=== PATIENT | female | born 1940 | race African-American/Black ===

== ENCOUNTER 2024-12-26 10:34 | Inpatient (IN) | payer OTHER, MEDICAID ==
[~2024-12-26] VITALS: Ht 172.7 cm; Wt 59.4 kg
[2024-12-26 10:40] VITALS: O2SAT 100
[2024-12-26 12:11] LABS: HEMATOCRIT. 43.2 % (36.0-48.0); HEMOGLOBIN. 13.7 g/dL (12.0-16.0); MEAN PLATELET VOLUME 9.6 fl (7.4-10.4); PLATELET 177 x1000/uL (130-400); RED BLOOD CELL COUNT 4.92 mill/uL (4.2-5.4); RED CELL DISTRIBUTION WIDTH 15.7 % (11.6-14.6)
[2024-12-26 12:28] LABS: CREATININE 1.1 mg/dL (0.6-1.0); UREA NITROGEN BLOOD 15 mg/dL (9-23)
[2024-12-26 12:29] LABS: ASPARTATE AMINOTRANSFERASE 50 IU/L (<34)
[2024-12-26 12:30] LABS: BILIRUBIN DIRECT 0.2 mg/dL (<=3.0); BILIRUBIN TOTAL 0.8 mg/dL (0.1-1.0); PROTEIN TOTAL 8.1 g/dL (6.0-8.3)
[2024-12-26 12:34] LABS: TROPONIN I HIGH SENSITIVITY 55 ng/L (3.0-34)
[2024-12-26 15:53] LABS: BAND% 5.0 % (1.0-6.0); LYMPHOCYTES % MANUAL 7.0 % (20.0-60.0); MONOCYTES % MANUAL 3.0 % (2.0-8.0); NEUTROPHILS % MANUAL 85.0 % (45.0-75.0)
[2024-12-26 15:54] LABS: PLATELET ESTIMATE NORMAL
[2024-12-26] MEDS: SODIUM CHLORIDE 0.9% 1,000 ML IV SCH (16:00)
[2024-12-26] MEDS ORDERED: ONDANSETRON HCL 4MG/2ML INJ IV PRN (16:00)
[2024-12-26] MEDS: HYDRALAZINE 20MG/ML VIAL IV SCH (17:21)
[2024-12-26] MEDS ORDERED: METOPROLOL SUCCINATE 50MG ER TABLET PO SCH (17:40)
[2024-12-26] MEDS: METOPROLOL TARTRATE 50MG TABLET PO SCH (18:04)
[2024-12-26 18:39] VITALS: BP 152/81; PULSE 82; RESP 20; TEMP 37.4; O2SAT 95
[2024-12-26 20:00] VITALS: BP 184/92; PULSE 68; RESP 18; TEMP 36.7; O2SAT 98
[2024-12-26] MEDS: ACETAMINOPHEN 325MG TABLET PO PRN (20:30)
[2024-12-26 22:10] VITALS: BP 184/92; PULSE 68; RESP 16; TEMP 36.4736
[2024-12-26 22:23] LABS: TROPONIN I HIGH SENSITIVITY 68 ng/L (3.0-34)
[2024-12-27] VITALS: BP 163/74; PULSE 57; RESP 20; TEMP 36.7; O2SAT 98
[2024-12-27] MEDS ORDERED: AMLO-905 PO (01:57)
[2024-12-27] MEDS ORDERED: AMLO-337 MT (01:57)
[2024-12-27] MEDS ORDERED: HYDR100T11 PO (02:00)
[2024-12-27] MEDS ORDERED: FURO20TA4 PO (02:00)
[2024-12-27] MEDS ORDERED: LEVO100T9 MT (02:00)
[2024-12-27] MEDS ORDERED: LIP40 MT (02:00)
[2024-12-27 04:00] VITALS: BP 150/60; PULSE 79; RESP 18; TEMP 36.9; O2SAT 98
[2024-12-27 05:58] LABS: UREA NITROGEN BLOOD 21.0 mg/dL (9-23)
[2024-12-27 06:01] LABS: CREATININE 1.6 mg/dL (0.6-1.0)
[2024-12-27 06:33] LABS: BASOPHILS % 0.4 % (0.0-2.0); EOSINOPHILS % 1.0 % (0.0-5.0); HEMATOCRIT. 42.2 % (36.0-48.0); HEMOGLOBIN. 13.5 g/dL (12.0-16.0); LYMPHOCYTES % 23.8 % (20.0-50.0); MEAN PLATELET VOLUME 10.4 fl (7.4-10.4); MONOCYTES % 12.0 % (2.0-8.0); NEUTROPHILS % 62.8 % (40.0-76.0); PLATELET 130 x1000/uL (130-400); RED BLOOD CELL COUNT 4.83 mill/uL (4.2-5.4); RED CELL DISTRIBUTION WIDTH 16.1 % (11.6-14.6)
[2024-12-27 07:23] LABS: CLARITY URINE TURBID (CLEAR); COLOR URINE DARK YELLOW (YELLOW); GLUCOSE URINE NEGATIVE (NEGATIVE); KETONES URINE TRACE (NEGATIVE); LEUKOCYTE ESTERASE URINE 3+ (NEGATIVE); NITRITE URINE NEGATIVE (NEGATIVE); OCCULT BLOOD URINE 2+ (NEGATIVE); PH URINE 5.5 (4.5-8.0); PROTEIN URINE 4+ (NEGATIVE); SPECIFIC GRAVITY URINE 1.023 (1.005-1.030); UROBILINOGEN URINE 1.0 E.U./dL (0.2-1.0)
[2024-12-27 07:40] LABS: WBC URINE TNTC /hpf (0-2)
[2024-12-27 07:43] LABS: BACTERIA URINE 4+; SQUAMOUS EPITHELIAL CELL URINE 2+ /lpf (RARE/1+)
[2024-12-27 07:59] LABS: RBC URINE 50-100 /hpf (0-2)
[2024-12-27 08:00] VITALS: BP 160/94; PULSE 60; RESP 20; TEMP 36.7; O2SAT 97
[2024-12-27] MEDS: PANTOPRAZOLE SODIUM 40 MG/VIAL IV SCH (09:08)
[2024-12-27] MEDS: ISOSORBIDE MONONITRATE 30MG TABLET SR 24HR PO SCH (11:24)
[2024-12-27] MEDS: CEFTRIAXONE 1GM/50ML 50 ML IV SCH (11:24)
[2024-12-27 12:00] VITALS: BP 161/80; PULSE 64; RESP 19; TEMP 37.1; O2SAT 99
[2024-12-27 16:53] VITALS: BP_SYST 139; BP_SYST 161; BP_DIAS 64; BP_DIAS 80; PULSE 60; PULSE 64; RESP 19; RESP 20; TEMP 97.7; TEMP 98.8
[2024-12-27 17:00] VITALS: BP 139/64; PULSE 60; RESP 20; TEMP 36.5; O2SAT 97
== END 2024-12-27 18:00 | disposition short-term general hospital (02) | DRG 535 ==
LOC: ER 10:34 → 8WST 13:14 → EDBEDREQ 13:19 → ENRESERV 15:45 → CANRESERV 15:45
PROVIDERS: ADMIT Internal Medicine; ATTEND Internal Medicine
DX: S72.092A Other fracture of head and neck of left femur, initial encounter for closed fracture (principal); I21.4 Non-ST elevation (NSTEMI) myocardial infarction; N17.9 Acute kidney failure, unspecified; N39.0 Urinary tract infection, site not specified; G93.40 Encephalopathy, unspecified; F32.A Depression, unspecified; I10 Essential (primary) hypertension; W18.39XA Other fall on same level, initial encounter; Y93.89 Activity, other specified; Z86.73 Personal history of transient ischemic attack (TIA), and cerebral infarction without residual deficits; Y92.89 Other specified places as the place of occurrence of the external cause; Y99.8 Other external cause status
CPT/HCPCS: 36415; 71045; 72170; 73562; 73700; 80048; 80076; 81003; 82550; 84484; 85025; 87077; 87186; 93005; 93970; 99291; A6449; J0360; J0696; J2470

== ENCOUNTER 2025-03-22 19:30 | Inpatient (IN) | payer OTHER, MEDICAID, MEDICARE ==
[~2025-03-22] VITALS: Ht 165.1 cm; Wt 67.6 kg
[~2025-03-22 19:30] MED LIST: AMLO-337 MT; AMLO-905 PO; FURO20TA4 PO; HYDR100T11 PO; LEVO100T9 MT; LIP40 MT
[2025-03-22 20:12] LABS: HEMATOCRIT. 32.6 % (36.0-48.0); HEMOGLOBIN. 9.7 g/dL (12.0-16.0); MEAN PLATELET VOLUME 9.9 fl (7.4-10.4); PLATELET 226 x1000/uL (130-400); RED BLOOD CELL COUNT 3.50 mill/uL (4.2-5.4); RED CELL DISTRIBUTION WIDTH 17.7 % (11.6-14.6)
[2025-03-22 20:22] LABS: INR 1.3
[2025-03-22 20:23] LABS: CREATININE 1.9 mg/dL (0.6-1.0)
[2025-03-22 20:24] LABS: ETHANOL BLOOD < 10 mg/dL (<10); PROTEIN TOTAL 6.8 g/dL (6.0-8.3); UREA NITROGEN BLOOD 25 mg/dL (9-23)
[2025-03-22 20:25] LABS: ASPARTATE AMINOTRANSFERASE 27 IU/L (<34)
[2025-03-22 20:26] LABS: BILIRUBIN DIRECT 0.2 mg/dL (<=3.0); BILIRUBIN TOTAL 0.5 mg/dL (0.1-1.0)
[2025-03-22] MEDS: CEFTRIAXONE 1GM/50ML 50 ML IV ONE (20:32)
[2025-03-22 20:38] LABS: BAND% 7.0 % (1.0-6.0); LYMPHOCYTES % MANUAL 12.0 % (20.0-60.0); MONOCYTES % MANUAL 4.0 % (2.0-8.0); NEUTROPHILS % MANUAL 77.0 % (45.0-75.0); PLATELET ESTIMATE NORMAL
[2025-03-22 21:13] LABS: TROPONIN I HIGH SENSITIVITY 372 ng/L (3.0-34)
[2025-03-22 21:28] LABS: BG BASE EXCESS -1.6 mmol/L (-2.0-3.0); BG CARBOXYHEMOGLOBIN 1.2 % (0.5-1.5); BG DEOXYHEMOGLOBIN 10.1 % (0.0-5.0); BG FRACTION INSPIRED OXYGEN 100; BG HCO3 ACT 27.2 mmol/L (21.0-28.0); BG METHEMOGLOBIN 0.3 % (0.5-1.5); BG OXYGEN SATURATION 89.7 % (94.0-98.0); BG OXYHEMOGLOBIN 88.4 % (94.0-98.0); BG PCO2 69.3 mmHg (32.0-45.0); BG PEEP (cmH2O) 7.0 cmH2O; BG PH 7.212 (7.350-7.450); BG PO2 64.7 mmHg (83.0-108.0); BG SAMPLE SITE RIGHT RADIAL; BG TOTAL HEMOGLOBIN 10.7 g/dL (12.0-16.0); BG VENT MODE MASK - BIPAP; BG VENT RATE 20.0 set
[2025-03-22] MEDS: ALBUTEROL (0.083%) 2.5MG/3ML NEB HHN SCH (22:29)
[2025-03-22] MEDS: IPRATROPIUM BROMIDE (0.02%) 0.5MG/2.5ML NEB HHN SCH (22:29)
[2025-03-22 22:32] VITALS: RESP 24
[2025-03-22] MEDS: ALBUTEROL (0.083%) 2.5MG/3ML NEB ONE (22:36)
[2025-03-22] MEDS: IPRATROPIUM BROMIDE (0.02%) 0.5MG/2.5ML NEB ONE (22:36)
[2025-03-22] MEDS: ASPIRIN 325MG EC TABLET PO ONE (23:37)
[2025-03-23] VITALS (64 sets, daily range): BP systolic 80–189; BP diastolic 38–77; PULSE 65–105; RESP 17–26; TEMP 36.6–37.1408; O2SAT 91–100
[2025-03-23] MEDS ORDERED: IPRATROPIUM/ALBUTEROL 0.5-3(2.5)MG/3ML NEB HHN PRN (00:30)
[2025-03-23] MEDS ORDERED: ONDANSETRON HCL 4MG/2ML INJ IV PRN (00:30)
[2025-03-23] MEDS ORDERED: ACETAMINOPHEN 325MG TABLET PO PRN (00:30)
[2025-03-23] MEDS ORDERED: METHYLPREDNISOLONE SOD SUCC 40MG/ML (ACT-O-VIAL) IV SCH (00:45)
[2025-03-23] MEDS ORDERED: DEXTROSE 50% WATER 50ML SYRINGE IV PRN ×2 (00:45→16:15)
[2025-03-23 02:46] LABS: BG BASE EXCESS 1.4 mmol/L (-2.0-3.0); BG CARBOXYHEMOGLOBIN 1.0 % (0.5-1.5); BG DEOXYHEMOGLOBIN 11.9 % (0.0-5.0); BG FRACTION INSPIRED OXYGEN 100; BG HCO3 ACT 28.5 mmol/L (21.0-28.0); BG METHEMOGLOBIN 0.0 % (0.5-1.5); BG OXYGEN SATURATION 88.0 % (94.0-98.0); BG OXYHEMOGLOBIN 87.1 % (94.0-98.0); BG PCO2 59.0 mmHg (32.0-45.0); BG PH 7.302 (7.350-7.450); BG PO2 54.9 mmHg (83.0-108.0); BG SAMPLE SITE RIGHT RADIAL; BG TOTAL HEMOGLOBIN 9.8 g/dL (12.0-16.0); BG VENT MODE MASK - BIPAP; BG VENT RATE 22.0 set
[2025-03-23] MEDS: DEXT 5%/0.45% NACL 1000ML 1,000 ML IV SCH (03:14)
[2025-03-23] MEDS: AZITHROMYCIN 500MG/250ML 250 ML IV SCH (03:15)
[2025-03-23] MEDS: METHYLPREDNISOLONE SOD SUCC 125MG/2ML (ACT-O-VIAL) IV NR (03:15)
[2025-03-23] MEDS: VANCOMYCIN 1.25GM/250ML IV NR (03:15)
[2025-03-23] MEDS: PANTOPRAZOLE SODIUM 40 MG/VIAL IV SCH (03:17)
[2025-03-23] MEDS: BLOOD SUGAR DIAGNOSTIC STRIP TEST SCH ×2 (04:00→21:00)
[2025-03-23] MEDS: IPRATROPIUM/ALBUTEROL 0.5-3(2.5)MG/3ML NEB HHN SCH (05:34)
[2025-03-23] MEDS ORDERED: FENTANYL 2500MCG/250ML PMX 250 ML IV PRN (05:45)
[2025-03-23] MEDS: MIDAZOLAM 100MG/100ML PMX 100 ML IV PRN (06:35)
[2025-03-23] MEDS: PIPERACILLIN/TAZO 3.375G/50ML 50 ML IV SCH (06:49)
[2025-03-23 08:41] LABS: BG BASE EXCESS -2.0 mmol/L (-2.0-3.0); BG CARBOXYHEMOGLOBIN 0.5 % (0.5-1.5); BG DEOXYHEMOGLOBIN 10.7 % (0.0-5.0); BG FRACTION INSPIRED OXYGEN 100; BG HCO3 ACT 25.1 mmol/L (21.0-28.0); BG METHEMOGLOBIN 0.3 % (0.5-1.5); BG OXYGEN SATURATION 89.2 % (94.0-98.0); BG OXYHEMOGLOBIN 88.5 % (94.0-98.0); BG PCO2 56.1 mmHg (32.0-45.0); BG PEEP (cmH2O) 5.0 cmH2O; BG PH 7.269 (7.350-7.450); BG PO2 58.9 mmHg (83.0-108.0); BG SAMPLE SITE RIGHT RADIAL; BG TIDAL VOLUME(mL) 450.0 mL; BG TOTAL HEMOGLOBIN 8.8 g/dL (12.0-16.0); BG VENT MODE VENT - AC; BG VENT RATE 18.0 set
[2025-03-23 09:42] LABS: HEMATOCRIT. 25.5 % (36.0-48.0); HEMOGLOBIN. 7.9 g/dL (12.0-16.0); MEAN PLATELET VOLUME 9.5 fl (7.4-10.4); PLATELET 126 x1000/uL (130-400); RED BLOOD CELL COUNT 2.77 mill/uL (4.2-5.4); RED CELL DISTRIBUTION WIDTH 17.0 % (11.6-14.6)
[2025-03-23] MEDS: ASPIRIN 81MG EC TABLET PO SCH (09:56)
[2025-03-23] MEDS: METHYLPREDNISOLONE SOD SUCC 40MG/ML (ACT-O-VIAL) IV SCH (09:56)
[2025-03-23] MEDS: LEVOTHYROXINE SODIUM 100MCG TABLET PO SCH (09:56)
[2025-03-23] MEDS: ENOXAPARIN 30MG/0.3ML SYR SUBCUT SCH (09:57)
[2025-03-23 10:00] LABS: CREATININE 1.8 mg/dL (0.6-1.0)
[2025-03-23 10:01] LABS: UREA NITROGEN BLOOD 36 mg/dL (9-23)
[2025-03-23 10:03] LABS: PHOSPHORUS 4.6 mg/dL (2.5-4.9)
[2025-03-23 10:06] LABS: TROPONIN I HIGH SENSITIVITY 292 ng/L (3.0-34)
[2025-03-23 11:27] LABS: FOLIC ACID (FOLATE) SERUM 7.55 ng/mL (>5.38)
[2025-03-23 11:28] LABS: VITAMIN B12 SERUM 430 pg/mL (211-911)
[2025-03-23 16:16] LABS: BG BASE EXCESS -1.9 mmol/L (-2.0-3.0); BG CARBOXYHEMOGLOBIN 1.0 % (0.5-1.5); BG DEOXYHEMOGLOBIN 2.7 % (0.0-5.0); BG FRACTION INSPIRED OXYGEN 100; BG HCO3 ACT 23.9 mmol/L (21.0-28.0); BG METHEMOGLOBIN 0.3 % (0.5-1.5); BG OXYGEN SATURATION 97.3 % (94.0-98.0); BG OXYHEMOGLOBIN 96.0 % (94.0-98.0); BG PCO2 45.4 mmHg (32.0-45.0); BG PEEP (cmH2O) 5.0 cmH2O; BG PH 7.339 (7.350-7.450); BG PO2 92.1 mmHg (83.0-108.0); BG SAMPLE SITE RIGHT RADIAL; BG TIDAL VOLUME(mL) 450.0 mL; BG TOTAL HEMOGLOBIN 9.0 g/dL (12.0-16.0); BG VENT MODE VENT - AC; BG VENT RATE 22.0 set
[2025-03-23] MEDS: INSULIN LISPRO 100 UNITS/ML SUBCUT SCH (17:10)
[2025-03-23] MEDS: ATORVASTATIN CALCIUM 40MG TABLET PO SCH (20:32)
[2025-03-24] VITALS (97 sets, daily range): BP systolic 85–150; BP diastolic 40–80; PULSE 61–114; RESP 0–38; TEMP 32.2–36.7; O2SAT 92–100
[2025-03-24 05:36] LABS: HEMATOCRIT. 29.3 % (36.0-48.0); HEMOGLOBIN. 8.6 g/dL (12.0-16.0); MEAN PLATELET VOLUME 9.8 fl (7.4-10.4); PLATELET 134 x1000/uL (130-400); RED BLOOD CELL COUNT 3.08 mill/uL (4.2-5.4); RED CELL DISTRIBUTION WIDTH 17.6 % (11.6-14.6)
[2025-03-24 05:56] LABS: T4 FREE 0.80 ng/dL (0.89-1.76)
[2025-03-24 05:57] LABS: CREATININE 2.1 mg/dL (0.6-1.0); TROPONIN I HIGH SENSITIVITY 111 ng/L (3.0-34); UREA NITROGEN BLOOD 36 mg/dL (9-23)
[2025-03-24] MEDS: AZITHROMYCIN 500MG/250ML 250 ML IV SCH (06:51)
[2025-03-24] MEDS: VANCOMYCIN 1G PREMIX 200 ML IV SCH (10:37)
[2025-03-24 10:39] LABS: BAND% 22.0 % (1.0-6.0); LYMPHOCYTES % MANUAL 4.0 % (20.0-60.0); METAMYELOCYTES % 22.0 % (0-0); MYELOCYTES % 2.0 % (0-0); NEUTROPHILS % MANUAL 50.0 % (45.0-75.0); PLATELET ESTIMATE NORMAL
[2025-03-24 14:22] LABS: BG BASE EXCESS -1.7 mmol/L (-2.0-3.0); BG CARBOXYHEMOGLOBIN 1.3 % (0.5-1.5); BG DEOXYHEMOGLOBIN 9.3 % (0.0-5.0); BG FRACTION INSPIRED OXYGEN 50; BG HCO3 ACT 23.2 mmol/L (21.0-28.0); BG METHEMOGLOBIN 0.3 % (0.5-1.5); BG OXYGEN SATURATION 90.5 % (94.0-98.0); BG OXYHEMOGLOBIN 89.1 % (94.0-98.0); BG PCO2 39.7 mmHg (32.0-45.0); BG PEEP (cmH2O) 5.0 cmH2O; BG PH 7.385 (7.350-7.450); BG PO2 58.9 mmHg (83.0-108.0); BG SAMPLE SITE RIGHT RADIAL; BG TIDAL VOLUME(mL) 450.0 mL; BG TOTAL HEMOGLOBIN 8.5 g/dL (12.0-16.0); BG TOTAL RESPIRATORY RATE 27 b/min; BG VENT MODE VENT - AC; BG VENT RATE 22.0 set
[2025-03-24] MEDS: DEXMEDETOMIDINE 100 ML IV PRN (15:14)
[2025-03-24 15:56] LABS: BAND% 17.0 % (1.0-6.0); LYMPHOCYTES % MANUAL 4.0 % (20.0-60.0); METAMYELOCYTES % 1.0 % (0-0); MONOCYTES % MANUAL 3.0 % (2.0-8.0); MYELOCYTES % 1.0 % (0-0); NEUTROPHILS % MANUAL 74.0 % (45.0-75.0); PLATELET ESTIMATE MARKEDLY DECREASED
[2025-03-24] MEDS: NOREPINEPHRINE 8MG/250ML PMX 250 ML IV PRN (16:11)
[2025-03-25] VITALS (103 sets, daily range): BP systolic 105–174; BP diastolic 50–82; PULSE 54–88; RESP 16–33; TEMP 36.4–36.9; O2SAT 96–100
[2025-03-25 05:17] LABS: HEMATOCRIT. 25.1 % (36.0-48.0); HEMOGLOBIN. 7.8 g/dL (12.0-16.0); MEAN PLATELET VOLUME 10.0 fl (7.4-10.4); PLATELET 161 x1000/uL (130-400); RED BLOOD CELL COUNT 2.83 mill/uL (4.2-5.4); RED CELL DISTRIBUTION WIDTH 16.8 % (11.6-14.6)
[2025-03-25 05:36] LABS: CREATININE 2.0 mg/dL (0.6-1.0); UREA NITROGEN BLOOD 49.0 mg/dL (9-23)
[2025-03-25 09:07] LABS: BG BASE EXCESS -1.9 mmol/L (-2.0-3.0); BG CARBOXYHEMOGLOBIN 1.0 % (0.5-1.5); BG DEOXYHEMOGLOBIN 3.4 % (0.0-5.0); BG FRACTION INSPIRED OXYGEN 50; BG HCO3 ACT 22.2 mmol/L (21.0-28.0); BG METHEMOGLOBIN 0.3 % (0.5-1.5); BG OXYGEN SATURATION 96.6 % (94.0-98.0); BG OXYHEMOGLOBIN 95.3 % (94.0-98.0); BG PCO2 34.9 mmHg (32.0-45.0); BG PEEP (cmH2O) 5.0 cmH2O; BG PH 7.422 (7.350-7.450); BG PO2 82.4 mmHg (83.0-108.0); BG SAMPLE SITE RIGHT RADIAL; BG TIDAL VOLUME(mL) 450.0 mL; BG TOTAL HEMOGLOBIN 7.9 g/dL (12.0-16.0); BG VENT MODE VENT - AC; BG VENT RATE 18.0 set
[2025-03-25 10:53] LABS: BAND% 33.0 % (1.0-6.0); LYMPHOCYTES % MANUAL 5.0 % (20.0-60.0); METAMYELOCYTES % 14.0 % (0-0); MONOCYTES % MANUAL 2.0 % (2.0-8.0); NEUTROPHILS % MANUAL 46.0 % (45.0-75.0); PLATELET ESTIMATE NORMAL
[2025-03-25 12:35] LABS: TRIGLYCERIDE 89 mg/dL (0-150)
[2025-03-25 12:36] LABS: LDL CHOLESTEROL 49 mg/dL (5-100)
[2025-03-25 12:40] LABS: T4 FREE 0.80 ng/dL (0.89-1.76)
[2025-03-25] MEDS: VANCOMYCIN 750MG PREMIX 150 ML IV SCH (14:37)
[2025-03-25] MEDS: HYDRALAZINE 20MG/ML VIAL IV PRN (14:37)
[2025-03-25] MEDS: SODIUM CHLORIDE 0.9% 1,000 ML IV SCH (14:38)
[2025-03-25 16:25] LABS: BG BASE EXCESS -1.9 mmol/L (-2.0-3.0); BG CARBOXYHEMOGLOBIN 0.6 % (0.5-1.5); BG DEOXYHEMOGLOBIN 3.2 % (0.0-5.0); BG FRACTION INSPIRED OXYGEN 50; BG HCO3 ACT 23.0 mmol/L (21.0-28.0); BG METHEMOGLOBIN 0.3 % (0.5-1.5); BG OXYGEN SATURATION 96.8 % (94.0-98.0); BG OXYHEMOGLOBIN 95.9 % (94.0-98.0); BG PCO2 39.5 mmHg (32.0-45.0); BG PEEP (cmH2O) 5.0 cmH2O; BG PH 7.383 (7.350-7.450); BG PO2 90.5 mmHg (83.0-108.0); BG SAMPLE SITE LEFT RADIAL; BG TOTAL HEMOGLOBIN 8.4 g/dL (12.0-16.0); BG VENT MODE VENT - CPAP
[2025-03-25] MEDS: TOBRAMYCIN 0.3% OPHTH DROPS 5ML RIGHTEYE SCH (21:01)
[2025-03-26] VITALS (99 sets, daily range): BP systolic 101–176; BP diastolic 43–84; PULSE 53–81; RESP 13–35; TEMP 36.4–36.9; O2SAT 97–100
[2025-03-26 00:14] LABS: CREATINE KINASE MB FRACTION 1.4 ng/mL (0.5-3.6)
[2025-03-26 02:18] LABS: TROPONIN I HIGH SENSITIVITY 56 ng/L (3.0-34)
[2025-03-26 06:29] LABS: CREATINE KINASE MB FRACTION 1.7 ng/mL (0.5-3.6)
[2025-03-26 06:30] LABS: TROPONIN I HIGH SENSITIVITY 53 ng/L (3.0-34)
[2025-03-26] MEDS: LEVOTHYROXINE SODIUM 112MCG TABLET PO SCH (06:34)
[2025-03-26 06:35] LABS: CREATININE 1.6 mg/dL (0.6-1.0); UREA NITROGEN BLOOD 50.0 mg/dL (9-23)
[2025-03-26 06:37] LABS: PHOSPHORUS 4.1 mg/dL (2.5-4.9)
[2025-03-26 08:05] LABS: HEMATOCRIT. 27.5 % (36.0-48.0); HEMOGLOBIN. 8.6 g/dL (12.0-16.0); MEAN PLATELET VOLUME 10.0 fl (7.4-10.4); PLATELET 150 x1000/uL (130-400); RED BLOOD CELL COUNT 3.10 mill/uL (4.2-5.4); RED CELL DISTRIBUTION WIDTH 16.4 % (11.6-14.6)
[2025-03-26] MEDS: AMLODIPINE 5MG TABLET PO SCH (08:28)
[2025-03-26 14:27] LABS: BAND% 15.0 % (1.0-6.0); LYMPHOCYTES % MANUAL 3.0 % (20.0-60.0); METAMYELOCYTES % 10.0 % (0-0); MONOCYTES % MANUAL 3.0 % (2.0-8.0); NEUTROPHILS % MANUAL 69.0 % (45.0-75.0); NUCLEATED RED BLOOD CELLS 1 /100 WBC; PLATELET ESTIMATE NORMAL
[2025-03-26 16:42] LABS: CLARITY URINE CLOUDY (CLEAR); COLOR URINE YELLOW (YELLOW); GLUCOSE URINE NEGATIVE (NEGATIVE); KETONES URINE NEGATIVE (NEGATIVE); LEUKOCYTE ESTERASE URINE NEGATIVE (NEGATIVE); NITRITE URINE NEGATIVE (NEGATIVE); OCCULT BLOOD URINE 2+ (NEGATIVE); PH URINE 5.5 (4.5-8.0); PROTEIN URINE TRACE (NEGATIVE); SPECIFIC GRAVITY URINE 1.012 (1.005-1.030); UROBILINOGEN URINE 0.2 E.U./dL (0.2-1.0)
[2025-03-26 16:53] LABS: CREATININE 1.3 mg/dL (0.6-1.0); UREA NITROGEN BLOOD 24.0 mg/dL (9-23)
[2025-03-26 17:54] LABS: BACTERIA URINE TRACE; SQUAMOUS EPITHELIAL CELL URINE 2+ /lpf (RARE/1+); WBC URINE 0-2 /hpf (0-2)
[2025-03-26 17:56] LABS: MUCUS URINE TRACE /lpf (< = 2+); URIC ACID CRYSTALS URINE 1+ /lpf
[2025-03-26 18:09] LABS: PROTEIN URINE RANDOM 25.0 mg/dL
[2025-03-26 18:11] LABS: CREATININE URINE RANDOM 43.4 mg/dL
[2025-03-26] MEDS: PIPERACILLIN/TAZO 3.375G/50ML 50 ML IV SCH (21:08)
[2025-03-27] VITALS (89 sets, daily range): BP systolic 94–163; BP diastolic 52–92; PULSE 57–93; RESP 15–29; TEMP 36.4–36.7; O2SAT 96–100
[2025-03-27 06:03] LABS: HEMATOCRIT. 25.2 % (36.0-48.0); HEMOGLOBIN. 8.1 g/dL (12.0-16.0); MEAN PLATELET VOLUME 10.0 fl (7.4-10.4); PLATELET 171 x1000/uL (130-400); RED BLOOD CELL COUNT 2.92 mill/uL (4.2-5.4); RED CELL DISTRIBUTION WIDTH 16.1 % (11.6-14.6)
[2025-03-27 06:21] LABS: CREATININE 1.4 mg/dL (0.6-1.0); UREA NITROGEN BLOOD 49 mg/dL (9-23)
[2025-03-27 06:23] LABS: PHOSPHORUS 3.6 mg/dL (2.5-4.9)
[2025-03-27 10:10] LABS: BAND% 7.0 % (1.0-6.0); LYMPHOCYTES % MANUAL 6.0 % (20.0-60.0); MONOCYTES % MANUAL 1.0 % (2.0-8.0); NEUTROPHILS % MANUAL 86.0 % (45.0-75.0); NUCLEATED RED BLOOD CELLS 2 /100 WBC
[2025-03-27 10:11] LABS: PLATELET ESTIMATE NORMAL
[2025-03-27] MEDS: ACETAMINOPHEN 325MG TABLET PO PRN (18:00)
== END 2025-03-27 21:10 | disposition short-term general hospital (02) | DRG 870 ==
LOC: ER 19:30 → EDBEDREQTM 21:59 → EDBEDREQ 21:59 → 5EST 03-23 00:28 → MICUSO 03-23 06:10
PROVIDERS: ADMIT Hospitalist; ATTEND Hospitalist
PROC: 5A09357 Assistance with Respiratory Ventilation, Less than 24 Consecutive Hours, Continuous Positive Airway Pressure (ICD-10-PCS; 2025-03-22)
PROC: 5A1955Z Respiratory Ventilation, Greater than 96 Consecutive Hours (ICD-10-PCS; principal; 2025-03-23)
PROC: 0BH17EZ Insertion of Endotracheal Airway into Trachea, Via Natural or Artificial Opening (ICD-10-PCS; 2025-03-23)
DX: A40.9 Streptococcal sepsis, unspecified (principal); G93.41 Metabolic encephalopathy; J96.21 Acute and chronic respiratory failure with hypoxia; J96.22 Acute and chronic respiratory failure with hypercapnia; I21.A1 Myocardial infarction type 2; N17.0 Acute kidney failure with tubular necrosis; J13 Pneumonia due to Streptococcus pneumoniae; E87.1 Hypo-osmolality and hyponatremia; D64.9 Anemia, unspecified; E11.65 Type 2 diabetes mellitus with hyperglycemia; J44.0 Chronic obstructive pulmonary disease with (acute) lower respiratory infection; K57.92 Diverticulitis of intestine, part unspecified, without perforation or abscess without bleeding; R65.20 Severe sepsis without septic shock; I13.0 Hypertensive heart and chronic kidney disease with heart failure and stage 1 through stage 4 chronic kidney disease, or unspecified chronic kidney disease; E03.9 Hypothyroidism, unspecified; N18.30 Chronic kidney disease, stage 3 unspecified; J44.1 Chronic obstructive pulmonary disease with (acute) exacerbation; E87.29 Other acidosis; I50.9 Heart failure, unspecified; L90.5 Scar conditions and fibrosis of skin; R00.1 Bradycardia, unspecified; I48.91 Unspecified atrial fibrillation; R31.29 Other microscopic hematuria; T38.0X5A Adverse effect of glucocorticoids and synthetic analogues, initial encounter; Z79.82 Long term (current) use of aspirin; Z86.73 Personal history of transient ischemic attack (TIA), and cerebral infarction without residual deficits; Z99.81 Dependence on supplemental oxygen; Y92.89 Other specified places as the place of occurrence of the external cause
CPT/HCPCS: 31500; 31720; 36415; 36600; 71045; 76770; 80048; 80061; 80076; 80202; 80320; 81003; 82040; 82140; 82375; 82550; 82553; 82570; 82607; 82728; 82746; 82805; 82962; 83036; 83540; 83550; 83605; 83735; 83880; 84100; 84145; 84156; 84439; 84443; 84484; 85025; 85044; 85379; 86038; 86850; 86900; 87070; 87077; 87186; 93005; 93306; 93970; 94002; 94003; 94070; 94640; 94660; 94664; 98960; 99291; A4606; J0360; J0456; J0696; J1650; J1815; J2250; J2470; J2543; J2919; J3373; J3490; J7030; G0480